=== PATIENT | female | born 1995 | race Caucasian/White ===

== ENCOUNTER 2017-01-11 09:21 | Emergency (ER) | payer OTHER ==
[2017-01-11 12:05] LABS: HEMOGLOBIN 10.9 gm/dl (12.3-15.3); RED BLOOD COUNT 4.55 M/UL (4.00-5.10); WHITE BLOOD COUNT 15.1 K/UL (4.5-11.0)
[2017-01-11 12:32] LABS: BUN/CREATININE RATIO 20 (0-10)
== END 2017-01-11 11:56 | disposition home or self-care (01) ==
LOC: ER1 09:21
PROVIDERS: Emergency Medicine
DX: J18.9 Pneumonia, unspecified organism (principal); Z90.49 Acquired absence of other specified parts of digestive tract; Z88.5 Allergy status to narcotic agent; Z91.040 Latex allergy status
CPT/HCPCS: 36415; 71020; 80048; 84703; 85025; 87040; 87081; 87880; 99283

== ENCOUNTER 2020-11-24 05:30 | Inpatient (IN) | payer OTHER ==
[~2020-11-24] VITALS: Ht 165.1 cm; Wt 88.9 kg
[~2020-11-24 05:30] MED LIST: FLAGYL500 MG PO; PRENATAL VITAM1 EAC8 PO
[2020-11-24 07:06] LABS: HEMOGLOBIN 9.6 gm/dl (12.3-15.3); RED BLOOD COUNT 3.77 M/UL (4.00-5.10); WHITE BLOOD COUNT 11.2 K/UL (4.5-11.0)
[2020-11-24] MEDS ORDERED: DOCUSATE SODIU250 MG PO (12:46)
[2020-11-24] MEDS ORDERED: IBUPROFEN600 MG PO (12:46)
[2020-11-25 06:18] LABS: HEMOGLOBIN 9.3 gm/dl (12.3-15.3)
--- NOTE | 2020-11-25 09:10 | NUR ---
PT REFUSED AM DOSE OF COLACE AFTER DOSE HAD BEEN SUBMITTED, WASTED IN OMNICEL, NOTIFIED PHARMACY FOR CREDIT
== END 2020-11-25 15:28 | disposition home or self-care (01) | DRG 807 ==
LOC: OB 05:30
PROVIDERS: Obstetrics & Gynecology; ADMIT Obstetrics & Gynecology
PROC: 10E0XZZ Delivery of Products of Conception, External Approach (ICD-10-PCS; principal; 2020-11-25)
PROC: 4A1HX4Z Monitoring of Products of Conception, Cardiac Electrical Activity, External Approach (ICD-10-PCS; 2020-11-25)
PROC: 10907ZC Drainage of Amniotic Fluid, Therapeutic from Products of Conception, Via Natural or Artificial Opening (ICD-10-PCS; 2020-11-25)
DX: O80 Encounter for full-term uncomplicated delivery (principal); Z37.0 Single live birth; Z3A.39 39 weeks gestation of pregnancy; Z20.822 Contact with and (suspected) exposure to COVID-19
CPT/HCPCS: 51702; 81001; 82800; 85014; 85018; 85025; J2590; J2795; J7120

== ENCOUNTER → 2021-01-12 | Outpatient (CLI) | payer OTHER ==
[~2021-01-12] MED LIST changes: +DOCUSATE SODIU250 MG PO; +IBUPROFEN600 MG PO
[2021-01-12 13:35] LABS: HEMOGLOBIN 11.9 gm/dl (12.3-15.3); RED BLOOD COUNT 4.66 M/UL (4.00-5.10); WHITE BLOOD COUNT 5.4 K/UL (4.5-11.0)
[2021-01-12 14:02] LABS: BUN/CREATININE RATIO 22 (0-10)
== END ==
LOC: LAB 12:40
PROVIDERS: Obstetrics & Gynecology
DX: R06.02 Shortness of breath (principal)
CPT/HCPCS: 36415; 80053; 85025; 85379

== ENCOUNTER 2022-06-04 02:26 | Emergency (ER) | payer OTHER | END 2022-06-04 05:20 | disposition left against medical advice (07) | LOC: ER1 02:26 | DX: Z53.21 Procedure and treatment not carried out due to patient leaving prior to being seen by health care provider (principal) ==